=== PATIENT | male | born 1995 | race Caucasian/White ===

== ENCOUNTER 2018-03-22 22:28 | Emergency (ER) | payer BC ==
[~2018-03-22] VITALS: Ht 188 cm; Wt 104.5 kg
[2018-03-22 22:33] VITALS: BP 132/66; TEMP 98.5
[2018-03-23] MEDS ORDERED: FLEXERIL 1010 MG/TAB PO (00:02)
[2018-03-23 00:25] VITALS: PULSE 59
== END 2018-03-23 00:25 | disposition home or self-care (01) ==
LOC: COL.ER 22:28
DX: M54.2 Cervicalgia (principal); M54.9 Dorsalgia, unspecified